=== PATIENT | female | born 1975 | race Caucasian/White ===

== ENCOUNTER 2016-09-18 18:05 | Emergency (ER) | payer SELFPAY ==
[2016-09-18 18:11] VITALS: BP 125/82
[2016-09-18] MEDS ORDERED: Sulfamethox/Trimethoprim DS 800/160* TAB PO ONE (19:05)
--- NOTE | 2016-09-18 19:10 | ED ---
Skin Complaint - HPI Summary HPI Summary: 41F presents with redness and swelling of right leg. She states that she thought she had a spider bite three days ago and started to notice some swelling and redness around the area that was spreading. She denies any fevers. She states the pain is worst when her pants rubs against her leg. She states she had an abscess many years ago and they had to knock her out as she has extreme anxiety. - History of Current Complaint Chief Complaint: EDRashSkinAbscess Time Seen by Provider: 09/18/16 18:45 Stated Complaint: ABSCESS ON RIGHT LEG Hx Last Menstrual Period: 12/15/15 Pain Intensity: 8 - Allergy/Home Medications Allergies/Adverse Reactions: Allergies Allergy/AdvReac Type Severity Reaction Status Date / Time Penicillins [PCN] Allergy Anaphylatic Verified 09/18/16 18:13 Shock PMH/Surg Hx/FS Hx/Imm Hx Endocrine/Hematology History: Denies: Hx Diabetes, Hx Thyroid Disease Cardiovascular History: Denies: Hx Hypertension Respiratory History: Denies: Hx Asthma, Hx Chronic Obstructive Pulmonary Disease (COPD) GI History: Denies: Hx Ulcer - Surgical History Surgery Procedure, Year, and Place: [facility] Infectious Disease History: No Infectious Disease History: Denies: Hx Hepatitis, Hx Human Immunodeficiency Virus (HIV), Traveled Outside the [place] in Last 30 Days - Family History Known Family History: Positive: Hypertension, Diabetes Negative: Cardiac Disease - Social History Alcohol Use: Occasionally Substance Use Type: Reports: None Smoking Status (MU): Never Smoked Tobacco Review of Systems Negative: Fever Negative: Chest Pain Negative: Shortness Of Breath Positive: Other - erythema of right thigh All Other Systems Reviewed And Are Negative: Yes Physical Exam Triage Information Reviewed: Yes Vital Signs On Initial Exam: Initial Vitals Temp Pulse Resp BP Pulse Ox 97.6 F 102 17 125/82 100 09/18/16 18:10 09/18/16 18:10 09/18/16 18:10 09/18/16 18:10 09/18/16 18:10 Vital Signs Reviewed: Yes Appearance: Positive: Well-Appearing Skin: Positive: Other - 9cm by 7cm area of cellulitis around a scabbed lesion on hamstring of right thigh, no area of fluctuance felt on exam Head/Face: Positive: Normal Head/Face Inspection Eyes: Positive: Normal, Conjunctiva Clear Respiratory/Lung Sounds: Positive: Clear to Auscultation, Breath Sounds Present Cardiovascular: Positive: Normal, RRR Musculoskeletal: Positive: Strength/ROM Intact - of right leg, Other - good pulses Diagnostics - Vital Signs Vital Signs Temp Pulse Resp BP Pulse Ox 09/18/16 18:11 97.6 F 91 17 125/82 100 09/18/16 18:10 97.6 F 102 17 125/82 100 - Laboratory Lab Statement: Any lab studies that have been ordered have been reviewed, and results considered in the medical decision making process. Course/Dx - Course Course Of Treatment: 41F presents with infection of right posterior thigh for 3 days. states started as spider bite and redness and warmth has spread. no fevers. on exam lesion located in center of cellulitis, no area of fluctuance noted, explained that could try to use needle in center of lesion to see if could get any pus as believe possible abscess present along with cellulitis but patient states that due to anxiety will not tolerate procedure at this time. patient would like to do warm compresses and start antibiotic, bactrim as has PCN allergy, and will take anxiety medication and return if develops drainable abscess. told often if do not incise abscess infection can not be treated with patient understands. patient will return if redness spread or develops fevers. patient understands and agrees with plan. - Differential Diagnoses - Skin Complaint Differential Diagnoses: Abscess, Cellulitis, Systemic Illness - Diagnoses Provider Diagnoses: Cellulitis of right leg Discharge - Discharge Plan Condition: Good Disposition: HOME Prescriptions: Sulfamethox/Trimethoprim DS* [Bactrim DS 800/160 TAB*] 1 tab PO BID #19 tab Patient Education Materials: Cellulitis (ED) Forms: *Work Release Referrals: No Primary Care Phys,NOPCP [Primary Care Provider] - Additional Instructions: Take antibiotic twice a day for [address] warm compresses on area multiple times a day Return to ED if area comes to a head, fever, or if redness spread or any new or worsening symptoms Images - Images Full Body (No Head): 1 - 9cm by 7cm area of cellulitis
== END 2016-09-18 19:43 | disposition home or self-care (01) ==
LOC: ED 18:05
DX: L03.115 Cellulitis of right lower limb (principal); R60.0 Localized edema
CPT/HCPCS: 99281; A9270-GY

== ENCOUNTER 2016-09-21 19:32 | Emergency (ER) | payer SELFPAY ==
[2016-09-21] MEDS ORDERED: Ibuprofen TAB* 400 MG PO ONE (22:07)
[2016-09-21] MEDS ORDERED: Ibuprofen TAB* 800 MG PO ONE (22:08)
--- NOTE | 2016-09-21 22:24 | ED ---
Skin Complaint - HPI Summary HPI Summary: Pt here w/ cellulitis on back pf Rt thigh - was seen on 09/18 and rx'd bactrim. Pt thinks it's been getting better but boyfriend took a picture and she states it's much larger than at onset - she also has some d/c at this time. Denies fever, chills, N/V/D, radiating pain. Has been keeping it covered. Started as the size of a small pimple. - History of Current Complaint Chief Complaint: EDRashSkinAbscess Time Seen by Provider: 09/21/16 21:24 Stated Complaint: POSS SPIDER BITE Hx Obtained From: Patient Hx Last Menstrual Period: 12/15/15 Pain Intensity: 5 - Allergy/Home Medications Allergies/Adverse Reactions: Allergies Allergy/AdvReac Type Severity Reaction Status Date / Time Penicillins [PCN] Allergy Anaphylatic Verified 09/22/16 10:42 Shock PMH/Surg Hx/FS Hx/Imm Hx Previously Healthy: Yes Endocrine/Hematology History: Denies: Hx Blood Disorders, Hx Diabetes, Hx Thyroid Disease Cardiovascular History: Denies: Hx Hypertension Respiratory History: Denies: Hx Asthma, Hx Chronic Obstructive Pulmonary Disease (COPD) GI History: Denies: Hx Ulcer Psychiatric History: Reports: Hx Anxiety - Surgical History Surgery Procedure, Year, and Place: [facility] Infectious Disease History: No Infectious Disease History: Denies: Hx Hepatitis, Hx Human Immunodeficiency Virus (HIV), Hx of Known/ Suspected MRSA, Traveled Outside the in Last 30 Days - Family History Known Family History: Positive: Hypertension, Diabetes Negative: Cardiac Disease - Social History Occupation: Employed Full-time - [employer] Lives: With Family - mother Alcohol Use: Occasionally Hx Substance Use: No Substance Use Type: Reports: None Hx Tobacco Use: No Smoking Status (MU): Never Smoked Tobacco Review of Systems Negative: Fever, Chills Negative: Chest Pain Negative: Shortness Of Breath Negative: Vomiting, Nausea Positive: no symptoms reported Musculoskeletal: Negative Skin: Other - see HPI Neurological: Negative Positive: Anxious All Other Systems Reviewed And Are Negative: Yes Physical Exam Triage Information Reviewed: Yes Vital Signs On Initial Exam: Initial Vitals Temp Pulse Resp BP Pulse Ox 97.1 F 71 15 124/99 99 09/21/16 19:33 09/21/16 19:33 09/21/16 19:33 09/21/16 19:33 09/21/16 19:33 Vital Signs Reviewed: Yes Appearance: Positive: Well-Appearing, No Pain Distress, Well-Nourished Skin: Positive: Warm - Rt posterior thigh - 3cm area of superficial ulceration - pores within draining seropurulent d/c - surround tissue up to 5cm indurated, erythematous and TTP - some material is expressed w/ palpation but appears to be trapped. Head/Face: Positive: Normal Head/Face Inspection Eyes: Positive: Normal, EOMI, Conjunctiva Clear ENT: Positive: Hearing grossly normal, Pharynx normal - mucosa moist Respiratory/Lung Sounds: Positive: Breath Sounds Present Cardiovascular: Positive: Normal, RRR, Pulses are Symmetrical in both Upper and Lower Extremities Musculoskeletal: Positive: Normal, Strength/ROM Intact Neurological: Positive: Normal, Sensory/Motor Intact, Alert, Oriented to Person Place, Time Psychiatric: Positive: Anxious - pt reports fear of needles but is able to cope by talking on phone w/ family Procedures - Incision and Drainage Site: Rt posterior thigh Anesthesia: Local - lidocaine w/ epi 3cc Instrument(s): Scalpel - drained 1.5 cc seropurulent fluid - locuations present Packing: Gauze - pressure irrigation then packed and dressed - pt tolerated well Diagnostics - Vital Signs Vital Signs Temp Pulse Resp BP Pulse Ox 09/21/16 19:44 97.3 F 88 15 124/99 100 09/21/16 19:33 97.1 F 71 15 124/99 99 - Laboratory Lab Statement: Any lab studies that have been ordered have been reviewed, and results considered in the medical decision making process. Course/Dx - Diagnoses Provider Diagnoses: Abscess of right thigh Discharge - Discharge Plan Condition: Stable Disposition: HOME Patient Education Materials: Abscess (ED) Referrals: No Primary Care Phys,NOPCP [Primary Care Provider] - [facility] [place] [facility]ERR[facility] [Outside] Additional Instructions: Your infection appears to be an abscess. This was opened, drained and packed with sterile gauze. It is important that you keep your dressing in place until tomorrow to have packing changed by a medical provider. This may be done here or at any urgent care. For pain, you may apply heat and/or ice, elevate and take ibuprofen with food. Complete antibiotics as directed. You should also establish with a PCP - referral number provided today. Call tomorrow to establish. *if you develop fever, chills, vomiting, streaking of wound, return to ED
[2016-09-21 23:02] VITALS: BP 125/91
== END 2016-09-21 22:59 | disposition home or self-care (01) ==
LOC: ED 19:32
DX: L03.115 Cellulitis of right lower limb (principal); Z88.0 Allergy status to penicillin
CPT/HCPCS: 10060; 99282; A9270-GY

== ENCOUNTER 2016-09-22 10:40 | Emergency (ER) | payer SELFPAY ==
[2016-09-22] MEDS ORDERED: Ibuprofen TAB* 800 MG PO ONE (12:04)
--- NOTE | 2016-09-22 12:04 | ED ---
Skin Complaint - HPI Summary HPI Summary: 41F presents with right thigh wound recheck. wound was i&D at 11 last night. She has been on bactrim for a couple days. She states that the bandage fell over and she wanted it placed back on. She denies any fevers or spreading redness. - History of Current Complaint Chief Complaint: EDGeneral Time Seen by Provider: 09/22/16 11:36 Stated Complaint: WOUND RECHECK Hx Last Menstrual Period: 12/15/15 Pain Intensity: 8 - Allergy/Home Medications Allergies/Adverse Reactions: Allergies Allergy/AdvReac Type Severity Reaction Status Date / Time Penicillins [PCN] Allergy Anaphylatic Verified 09/22/16 10:42 Shock PMH/Surg Hx/FS Hx/Imm Hx Endocrine/Hematology History: Denies: Hx Blood Disorders, Hx Diabetes, Hx Thyroid Disease Cardiovascular History: Denies: Hx Hypertension Respiratory History: Denies: Hx Asthma, Hx Chronic Obstructive Pulmonary Disease (COPD) GI History: Denies: Hx Ulcer Psychiatric History: Reports: Hx Anxiety - Surgical History Surgery Procedure, Year, and Place: [facility] Infectious Disease History: No Infectious Disease History: Denies: Hx Hepatitis, Hx Human Immunodeficiency Virus (HIV), Hx of Known/ Suspected MRSA, Traveled Outside the [place] in Last 30 Days - Family History Known Family History: Positive: Hypertension, Diabetes Negative: Cardiac Disease - Social History Alcohol Use: Occasionally Hx Substance Use: No Substance Use Type: Reports: None Hx Tobacco Use: No Smoking Status (MU): Never Smoked Tobacco Review of Systems Negative: Fever Negative: Chest Pain Negative: Shortness Of Breath Positive: Other - i&D abscessed All Other Systems Reviewed And Are Negative: Yes Physical Exam Triage Information Reviewed: Yes Vital Signs On Initial Exam: Initial Vitals Temp Pulse Resp BP Pulse Ox 96.8 F 79 16 118/78 100 09/22/16 10:43 09/22/16 10:43 09/22/16 10:43 09/22/16 10:43 09/22/16 10:43 Vital Signs Reviewed: Yes Appearance: Positive: Well-Appearing Skin: Positive: Warm, Dry, Other - 1cm laceration with packing on right posterior thigh with 2 cm surrounding erythema Head/Face: Positive: Normal Head/Face Inspection Eyes: Positive: Normal, Conjunctiva Clear Respiratory/Lung Sounds: Positive: Clear to Auscultation, Breath Sounds Present Cardiovascular: Positive: Normal, RRR - Yonathan Coma Scale Coma Scale Total: 15 Diagnostics - Vital Signs Vital Signs Temp Pulse Resp BP Pulse Ox 09/22/16 11:30 66 113/81 97 09/22/16 11:17 60 97 09/22/16 11:16 107/74 09/22/16 10:43 96.8 F 79 16 118/78 100 - Laboratory Lab Statement: Any lab studies that have been ordered have been reviewed, and results considered in the medical decision making process. Course/Dx - Course Course Of Treatment: 41F presents with I&D abscess last night that appears to be healing well. erythema is much less than when saw for intial visit. due to packing only being in place for a couple hours will leave in for tomorrow. rewrapped abscesses and told to follow up tomorrow. patient understands and agrees with plan - Differential Diagnoses - Skin Complaint Differential Diagnoses: Abscess, Cellulitis, Contact Dermatitis - Diagnoses Provider Diagnoses: Encounter for wound re-check, ABSCESS INCISION AND DRAINAGE Discharge - Discharge Plan Condition: Good Disposition: HOME Patient Education Materials: Abscess Incision and Drainage (ED) Forms: *Work Release Referrals: No Primary Care Phys,NOPCP [Primary Care Provider] - Additional Instructions: Continue bactrim Take Tylenol or ibuprofen for pain every 6 hours Return to ED or urgent care tomorrow for wound check
[2016-09-22 12:11] VITALS: BP 114/69
== END 2016-09-22 12:11 | disposition home or self-care (01) ==
LOC: ED 10:40
DX: Z48.01 Encounter for change or removal of surgical wound dressing (principal); F41.9 Anxiety disorder, unspecified; Z88.0 Allergy status to penicillin
CPT/HCPCS: 99282; A9270-GY

== ENCOUNTER 2016-09-23 14:10 | Emergency (ER) | payer SELFPAY ==
--- NOTE | 2016-09-23 16:11 | ED ---
ED Suture/Wound Check - HPI Summary HPI Summary: 41 y/o female with small abscess s/p I&D R posterior thigh. no odor, drainage. overall feeling well, anxious about dressing change, tearful. Packing removed, health tissue noted below, minimal debridement perform. - History Of Current Complaint Chief Complaint: EDGeneral Stated Complaint: WOUND RE-CK Time Seen by Provider: 09/23/16 15:43 Hx Obtained From: Patient Severity: Mild Pain Intensity: 1 - Allergies/Home Medications Allergies/Adverse Reactions: Allergies Allergy/AdvReac Type Severity Reaction Status Date / Time Penicillins [PCN] Allergy Anaphylatic Verified 09/23/16 16:06 Shock PMH/Surg Hx/FS Hx/Imm Hx Previously Healthy: Yes Endocrine/Hematology History: Denies: Hx Blood Disorders, Hx Diabetes, Hx Thyroid Disease Cardiovascular History: Denies: Hx Hypertension Respiratory History: Denies: Hx Asthma, Hx Chronic Obstructive Pulmonary Disease (COPD) GI History: Denies: Hx Ulcer Psychiatric History: Reports: Hx Anxiety - Surgical History Surgery Procedure, Year, and Place: [facility] Infectious Disease History: Denies: Hx Hepatitis, Hx Human Immunodeficiency Virus (HIV), Hx of Known/ Suspected MRSA, Traveled Outside the [place] in Last 30 Days - Family History Known Family History: Positive: Hypertension, Diabetes Negative: Cardiac Disease - Social History Alcohol Use: Occasionally Hx Substance Use: No Substance Use Type: Reports: None Hx Tobacco Use: No Smoking Status (MU): Never Smoked Tobacco Review of Systems Constitutional: Negative Eyes: Negative ENT: Negative Cardiovascular: Negative Respiratory: Negative Gastrointestinal: Negative Genitourinary: Negative Positive: Myalgia Skin: Negative Neurological: Negative Psychological: Normal All Other Systems Reviewed And Are Negative: Yes Physical Exam Triage Information Reviewed: Yes Vital Signs On Initial Exam: Initial Vitals Temp Pulse Resp BP Pulse Ox 97.3 F 82 117 117/72 99 09/23/16 14:20 09/23/16 14:20 09/23/16 14:20 09/23/16 14:20 09/23/16 14:20 Vital Signs Reviewed: Yes Appearance: Positive: Well-Appearing, No Pain Distress, Well-Nourished Skin: Positive: Warm, Skin Color Reflects Adequate Perfusion, Other - small 1 cm abscess s/p ID no purulent discharge, bloody drainage, minimal debridement with forceps. Patient tearful at exam. Diagnostics - Vital Signs Vital Signs Temp Pulse Resp BP Pulse Ox 09/23/16 15:20 97.5 F 77 20 124/78 100 09/23/16 14:20 97.3 F 82 117 117/72 99 - Laboratory Lab Statement: Any lab studies that have been ordered have been reviewed, and results considered in the medical decision making process. Course/Dx - Course Course Of Treatment: wound re-packed, no complications, patient anxious/ tearful. FOllow up in 3 days. - Differential Diagnoses Differential Diagnoses: Abscess, Cellulitis, Healing Wound - Clinical Impression Provider Diagnoses: Wound check, abscess Discharge - Discharge Plan Condition: Stable Disposition: HOME Forms: *Work Release Additional Instructions: - Continue currently medication - FOllow up in 2-3 days for wound recheck - Replace gauze if you notice drainage, otherwise leave in place
[2016-09-23 16:26] VITALS: BP 124/80
== END 2016-09-23 16:28 | disposition home or self-care (01) ==
LOC: ED 14:10
DX: L02.415 Cutaneous abscess of right lower limb (principal); M79.1 Myalgia
CPT/HCPCS: 99282

== ENCOUNTER 2016-09-26 18:43 | Emergency (ER) | payer SELFPAY ==
--- NOTE | 2016-09-26 19:46 | ED ---
ED Suture/Wound Check - HPI Summary HPI Summary: Patient presents for a wound check on an I&D abscess on the back of her right thigh from 8 days ago. She has packing in the wound and has kept the dressing clean, dry and intact. She is taking her antibiotic and has 3 days left. She denies fever, chills, N/V/D or drainage from the wound. - History Of Current Complaint Chief Complaint: EDLacSutureRecheck Stated Complaint: LEG RECHECK Time Seen by Provider: 09/26/16 19:19 Hx Obtained From: Patient Onset/Duration: Gradual Onset Surgical Site: right posterior thigh Severity: Mild Pain Intensity: 0 - Allergies/Home Medications Allergies/Adverse Reactions: Allergies Allergy/AdvReac Type Severity Reaction Status Date / Time Penicillins [PCN] Allergy Anaphylatic Verified 09/23/16 16:06 Shock PMH/Surg Hx/FS Hx/Imm Hx Previously Healthy: Yes Endocrine/Hematology History: Denies: Hx Blood Disorders, Hx Diabetes, Hx Thyroid Disease Cardiovascular History: Denies: Hx Hypertension Respiratory History: Denies: Hx Asthma, Hx Chronic Obstructive Pulmonary Disease (COPD) GI History: Denies: Hx Ulcer Psychiatric History: Reports: Hx Anxiety - Surgical History Surgery Procedure, Year, and Place: [facility] Infectious Disease History: Denies: Hx Hepatitis, Hx Human Immunodeficiency Virus (HIV), Hx of Known/ Suspected MRSA, Traveled Outside the [place] in Last 30 Days - Family History Known Family History: Positive: Hypertension, Diabetes Negative: Cardiac Disease - Social History Occupation: Employed Full-time Lives: With Family Alcohol Use: Occasionally Hx Substance Use: No Substance Use Type: Reports: None Hx Tobacco Use: No Smoking Status (MU): Never Smoked Tobacco Review of Systems Negative: Fever, Chills Positive: Other - healing wound right posterior thigh All Other Systems Reviewed And Are Negative: Yes Physical Exam Triage Information Reviewed: Yes Vital Signs On Initial Exam: Initial Vitals Temp Pulse Resp BP Pulse Ox 97.7 F 66 14 117/74 100 09/26/16 18:48 09/26/16 18:48 09/26/16 18:48 09/26/16 18:48 09/26/16 18:48 Vital Signs Reviewed: Yes Appearance: Positive: Well-Appearing, No Pain Distress, Well-Nourished Skin: Positive: Warm, Skin Color Reflects Adequate Perfusion, Dry, Soft, Erythema @ - mild healing enduration surrounding 5mm wound without drainage, erythema or streaking Head/Face: Positive: Normal Head/Face Inspection Eyes: Positive: EOMI, [place], Conjunctiva Clear ENT: Positive: Hearing grossly normal Respiratory/Lung Sounds: Positive: Breath Sounds Present Cardiovascular: Positive: RRR Musculoskeletal: Positive: Strength/ROM Intact. Negative: Edema Left, Edema Right Neurological: Positive: Sensory/Motor Intact, Alert, Oriented to Person Place, Time, [place] Bundle Intact Distally, Normal Gait Psychiatric: Positive: Affect/Mood Appropriate AVPU Assessment: Alert Diagnostics - Vital Signs Vital Signs Temp Pulse Resp BP Pulse Ox 09/26/16 18:48 97.7 F 66 14 117/74 100 - Laboratory Lab Statement: Any lab studies that have been ordered have been reviewed, and results considered in the medical decision making process. Course/Dx - Course Course Of Treatment: The small amount of packing was removed and patient was counseled on wound care. - Differential Diagnoses Differential Diagnoses: Abscess, Dehiscence, Healing Wound, Joint Infection, Suture Removal - Clinical Impression Provider Diagnoses: Healing wound Discharge - Discharge Plan Condition: Stable Disposition: HOME Patient Education Materials: Acute Wounds (ED) Forms: *Work Release Additional Instructions: Clean your wound with warm water and soap. You can leave it open to air if you are in a clean environment, but otherwise protect it with a clean, dry dressing. Continue taking your antibiotics until they are completely gone. Return to the emergency department if symptoms worsen.
[2016-09-26 20:04] VITALS: BP 111/64
== END 2016-09-26 20:00 | disposition home or self-care (01) ==
LOC: ED 18:43
DX: S70.921A Unspecified superficial injury of right thigh, initial encounter (principal); X58.XXXA Exposure to other specified factors, initial encounter; Y93.9 Activity, unspecified; Y92.9 Unspecified place or not applicable
CPT/HCPCS: 99281

== ENCOUNTER 2019-01-13 14:37 | Emergency (ER) | payer OTHER ==
[2019-01-13 14:46] VITALS: BP 112/71
--- NOTE | 2019-01-13 14:54 | UC ---
Skin Complaint HPI - HPI Summary HPI Summary: ONSET OF ITCHY RASH TO BACK OF RIGHT HAND AFTER CUTTING DOWN TREES. NOW HAS SOME SPOTS ON HER CHIN/NECK. NO DRAINAGE. NO FEVER. - History of Current Complaint Chief Complaint: UCRash Time Seen by Provider: 01/13/19 14:50 Stated Complaint: RASH THAT IS SPREADING Hx Obtained From: Patient Hx Last Menstrual Period: 12/15/15 Onset/Duration: Gradual Onset, Lasting Days, Still Present Skin Exposure Onset/Duration: Days Ago Timing: Constant Onset Severity: Moderate Current Severity: Moderate Pain Intensity: 0 Pain Scale Used: 0-10 Numeric Character: Pruritus, Redness Aggravating Factor(s): Touch Alleviating Factor(s): Nothing Associated Signs & Symptoms: Positive: Rash Related History: Possible Reaction to: Environmental Exposure - Allergy/Home Medications Allergies/Adverse Reactions: Allergies Allergy/AdvReac Type Severity Reaction Status Date / Time Penicillins Allergy Anaphylatic Verified 01/13/19 14:46 Shock Home Medications: Home Medications Levothyroxine Sodium [Levoxyl] 75 mcg PO DAILY 01/13/19 [History Confirmed 01/13] PMH/Surg Hx/FS Hx/Imm Hx Endocrine History: Hypothyroidism Psychological History: Depression - Surgical History Surgical History: Yes Surgery Procedure, Year, and Place: [facility] - Family History Known Family History: Positive: Hypertension, Diabetes Negative: Cardiac Disease - Social History Alcohol Use: Rare Substance Use Type: None Smoking Status (MU): Never Smoked Tobacco Review of Systems All Other Systems Reviewed And Are Negative: Yes Constitutional: Positive: Negative Skin: Positive: Rash Respiratory: Positive: Negative Cardiovascular: Positive: Negative Gastrointestinal: Positive: Negative Physical Exam Triage Information Reviewed: Yes Appearance: Well-Appearing, No Pain Distress, Well-Nourished Vital Signs: Initial Vital Signs Temp 97.7 F 01/13/19 14:43 Pulse 69 01/13/19 14:43 Resp 18 01/13/19 14:43 BP 112/71 01/13/19 14:43 Pulse Ox 100 01/13/19 14:43 Vital Signs Reviewed: Yes Eyes: Positive: Conjunctiva Clear ENT: Positive: Hearing grossly normal Neck: Positive: Supple Respiratory: Positive: No respiratory distress, No accessory muscle use Cardiovascular: Positive: Pulses Normal Abdomen Description: Positive: Soft Musculoskeletal: Positive: No Edema Neurological: Positive: Alert Psychological: Positive: Age Appropriate Behavior Skin: Positive: Rashes - SCATTERED ERYTHAMATOUS, MILDLY EXCORIATED RASH ON RIGHT HAND AND LEFT SIDE OF CHIN/NECK Course/Dx - Diagnoses Provider Diagnosis: Contact dermatitis Discharge - Sign-Out/Discharge Documenting (check all that apply): Patient Departure All imaging exams completed and their final reports reviewed: No Studies - Discharge Plan Condition: Stable Disposition: HOME Prescriptions: predniSONE TAB* [Deltasone TAB*] 50 mg PO DAILY #5 tab Triamcinolone 0.1% CREAM(NF) [Kenalog Cream 0.1%(NF)] 1 applic TOPICAL TID PRN # 1 tube PRN Reason: Itching Patient Education Materials: Contact Dermatitis (ED) Referrals: [facility] [Outside] - If Needed Additional Instructions: USE DAILY HYPOALLERGENIC MOISTURIZING LOTION TAKE PREDNISONE DAILY PRESCRIBED AVOID HEAT AND HOT WATER TAKE OTC ANTIHISTAMINE DAILY (CLARITIN (LORATADINE), ZYRTEC (CETIRIZINE) OR CECILIO (FEXOFENADINE) IN THE MORNING, 25-50MG BENADRYL AT NIGHT) DO NOT SCRATCH KEEP COOL, CLEAN AND DRY USE TOPICAL STEROID SPARINGLY 2-3 TIMES DAILY ON ITCHY SPOTS. KEEP AWAY FROM MUCOUS MEMBRANES. GO TO THE ED WITHOUT FAIL IF YOU DEVELOP ANY RESPIRATORY INVOLVEMENT, TONGUE/ LIP SWELLING, FEVER, NAUSEA/VOMITING OR ANY OTHER CONCERNING SYMPTOMS. CALL THE NUMBER BELOW FOR ASSISTANCE IN ESTABLISHING WITH A PCP An additional resource available to assist in finding the appropriate physician for your health care needs is the [facility] ([facility]). You may contact them by calling [phone]. - Billing Disposition and Condition Condition: STABLE Disposition: Home
== END 2019-01-13 15:03 | disposition home or self-care (01) ==
LOC: UCEAST 14:37
DX: L25.9 Unspecified contact dermatitis, unspecified cause (principal); E03.9 Hypothyroidism, unspecified; F32.9 Major depressive disorder, single episode, unspecified; Z88.0 Allergy status to penicillin
CPT/HCPCS: 99212; G0463